=== PATIENT | male | born 1955 | race Caucasian/White ===

== ENCOUNTER 2018-10-02 21:53 | Emergency (ER) | payer MEDICAID, MEDICARE ==
[~2018-10-02] VITALS: Ht 182.9 cm; Wt 84.0 kg
[~2018-10-02 21:53] MED LIST: NORCO10T PO
[2018-10-02 23:34] LABS: BASOPHILS % (AUTO) 0.9 % (0-1); EOSINOPHILS # (AUTO) 0.3 X10'3 (0-0.9); EOSINOPHILS % (AUTO) 5.7 % (0-6); HEMATOCRIT 41.5 % (42.0-52.0); HEMOGLOBIN 14.3 g/dl (14.0-17.9); LYMPHOCYTES # (AUTO) 1.5 X10'3 (1.1-4.8); LYMPHOCYTES % (AUTO) 33.6 % (21-51); MEAN CORPUSCULAR HEMOGLOBIN 36.2 PG (27.0-31.0); MEAN CORPUSCULAR HGB CONC 34.4 g/dL (33.0-36.5); MEAN CORPUSCULAR VOLUME 105.1 FL (78-98); MEAN PLATELET VOLUME 7.6 FL (7.4-10.4); MONOCYTES # (AUTO) 0.6 X10'3 (0-0.9); MONOCYTES % (AUTO) 13.5 % (2-12); NEUTROPHILS # (AUTO) 2.1 X10'3 (1.8-7.7); NEUTROPHILS % (AUTO) 46.3 % (42-75); PLATELET COUNT 125 X10'3 (140-440); RED BLOOD COUNT 3.95 X10'6 (4.70-6.10); RED CELL DISTRIBUTION WIDTH 13.3 % (11.5-14.5); WHITE BLOOD COUNT 4.6 X10'3 (4.5-11.0)
[2018-10-02 23:50] LABS: ALANINE AMINOTRANSFERASE 128 U/L (12-78); ALBUMIN 3.9 G/DL (3.4-5.0); ALKALINE PHOSPHATASE 147 IU/L (46-116); ANION GAP 14 (8-16); ASPARTATE AMINO TRANSFERASE 189 U/L (10-37); BILIRUBIN,TOTAL 0.4 MG/DL (0.1-1.0); BLOOD UREA NITROGEN 12 MG/DL (7-18); BUN/CREATININE RATIO 13.8 (5.4-32.0); CALCIUM 9.4 MG/DL (8.5-10.1); CHLORIDE 105 MMOL/L (99-107); CREATININE 0.87 MG/DL (0.60-1.10); GLUCOSE 105 MG/DL (70-104); POTASSIUM 4.1 MMOL/L (3.5-5.1); SODIUM 144 MMOL/L (135-145); TOTAL CARBON DIOXIDE 25.2 MMOL/L (24-32); TOTAL PROTEIN 7.7 G/DL (6.4-8.2); eGFR 89 ML/MIN
[2018-10-02 23:52] LABS: TROPONIN I < 0.04 NG/ML (0.0-0.05)
[2018-10-03 01:13] VITALS: BP 158/85
== END 2018-10-03 02:22 | disposition home or self-care (01) ==
LOC: ER 21:53
DX: F10.929 Alcohol use, unspecified with intoxication, unspecified (principal); Z79.899 Other long term (current) drug therapy
CPT/HCPCS: 36415; 80053; 80320; 84443; 84484; 85025; 99284

== ENCOUNTER 2019-12-04 12:02 | Emergency (ER) | payer MEDICARE ==
[~2019-12-04] VITALS: Ht 180.3 cm; Wt 80.0 kg
[~2019-12-04 12:02] MED LIST changes: -NORCO10T PO; +PANT-47 PO
[2019-12-04] MEDS ORDERED: thiamine 100mg/ml 2ml inj. IV ONE (12:10)
[2019-12-04] MEDS ORDERED: normal saline 1000ML IV soln IVB ONE (12:10)
[2019-12-04] MEDS ORDERED: folic acid 1mg/0.2ml inj IV ONE (12:10)
[2019-12-04 12:47] LABS: BASOPHILS % (AUTO) 0.6 % (0-1); EOSINOPHILS % (AUTO) 0.2 % (0-6); HEMATOCRIT 42.7 % (42.0-52.0); HEMOGLOBIN 14.9 g/dl (14.0-17.9); LYMPHOCYTES % (AUTO) 14.9 % (21-51); MEAN CORPUSCULAR HGB CONC 34.9 g/dL (33.0-36.5); MEAN CORPUSCULAR VOLUME 103.1 FL (78-98); MEAN PLATELET VOLUME 7.7 FL (7.4-10.4); MONOCYTES # (AUTO) 0.7 X10'3 (0-0.9); MONOCYTES % (AUTO) 10.1 % (2-12); NEUTROPHILS # (AUTO) 4.8 X10'3 (1.8-7.7); NEUTROPHILS % (AUTO) 74.2 % (42-75); PLATELET COUNT 129 X10'3 (140-440); RED BLOOD COUNT 4.14 X10'6 (4.70-6.10); RED CELL DISTRIBUTION WIDTH 12.8 % (11.5-14.5); WHITE BLOOD COUNT 6.5 X10'3 (4.5-11.0)
[2019-12-04 13:00] LABS: ALANINE AMINOTRANSFERASE 171 U/L (12-78); ALBUMIN 4.1 G/DL (3.4-5.0); ALBUMIN/GLOBULIN RATIO 1.1 (1.1-1.5); ALKALINE PHOSPHATASE 108 IU/L (46-116); ANION GAP 15 (8-16); ASPARTATE AMINO TRANSFERASE 200 U/L (10-37); BILIRUBIN,TOTAL 0.7 MG/DL (0.1-1.0); BLOOD UREA NITROGEN 6 MG/DL (7-18); CALCIUM 9.6 MG/DL (8.5-10.1); CHLORIDE 97 MMOL/L (99-107); CREATININE 1.21 MG/DL (0.60-1.10); ETHANOL 0.049 GM/DL (0.0-0.010); GLUCOSE 127 MG/DL (70-104); POTASSIUM 3.6 MMOL/L (3.5-5.1); SODIUM 139 MMOL/L (135-145); TOTAL CARBON DIOXIDE 27.2 MMOL/L (24-32); eGFR 60 ML/MIN
[2019-12-04] MEDS ORDERED: LORazepam 2 mg/ml vial IV ONE (13:00)
[2019-12-04] MEDS ORDERED: ondansetron/PF 4mg/2ml inj IV ONE (13:35)
[2019-12-04] MEDS ORDERED: cloNIDine 0.1 mg tablet PO ONE (14:35)
[2019-12-04] MEDS ORDERED: ONDA4TAB6 PO (15:30)
[2019-12-04] MEDS ORDERED: GABA300C PO (15:30)
[2019-12-04] MEDS ORDERED: LORA-269 PO (15:30)
[2019-12-04 15:33] VITALS: BP 131/79
== END 2019-12-04 17:00 | disposition home or self-care (01) ==
LOC: ER 12:03
DX: F10.239 Alcohol dependence with withdrawal, unspecified (principal); R10.9 Unspecified abdominal pain; R11.2 Nausea with vomiting, unspecified; R06.02 Shortness of breath; Z79.899 Other long term (current) drug therapy; Y90.0 Blood alcohol level of less than 20 mg/100 ml
CPT/HCPCS: 36415; 71045; 74018; 80053; 80320; 83880; 84484; 85025; 93005; 96361; 96374; 96375; 99285; J2060; J2405; J3411; J3490; J7030

== ENCOUNTER 2020-05-30 23:08 | Emergency (ER) | payer MEDICARE, OTHER ==
[~2020-05-30] VITALS: Ht 180.3 cm; Wt 84.1 kg
[~2020-05-30 23:08] MED LIST changes: +GABA300C PO; +LORA-269 PO; +ONDA4TAB6 PO
[2020-05-30] MEDS ORDERED: diltiazem 5mg/ml 5ml inj. IV ONE (23:25)
[2020-05-30] MEDS ORDERED: normal saline 1000ml 1,000 ML IV ONE (23:25)
[2020-05-30] MEDS ORDERED: ondansetron/PF 4mg/2ml inj IV ONE (23:25)
[2020-05-30] MEDS ORDERED: magnesium 2GM in 50ml NS 50 ML IV ONE (23:25)
[2020-05-30] MEDS ORDERED: LORazepam 2 mg/ml vial IV ONE (23:30)
[2020-05-30 23:42] LABS: BASOPHILS % (AUTO) 0.5 % (0-1); EOSINOPHILS % (AUTO) 0.1 % (0-6); HEMATOCRIT 44.8 % (42.0-52.0); HEMOGLOBIN 15.8 g/dl (14.0-17.9); LYMPHOCYTES # (AUTO) 1.4 X10'3 (1.1-4.8); LYMPHOCYTES % (AUTO) 15.1 % (21-51); MEAN CORPUSCULAR HEMOGLOBIN 34.6 PG (27.0-31.0); MEAN CORPUSCULAR HGB CONC 35.2 g/dL (33.0-36.5); MEAN CORPUSCULAR VOLUME 98.4 FL (78-98); MEAN PLATELET VOLUME 7.6 FL (7.4-10.4); MONOCYTES # (AUTO) 0.6 X10'3 (0-0.9); NEUTROPHILS # (AUTO) 7.1 X10'3 (1.8-7.7); NEUTROPHILS % (AUTO) 77.3 % (42-75); PLATELET COUNT 172 X10'3 (140-440); RED BLOOD COUNT 4.55 X10'6 (4.70-6.10); RED CELL DISTRIBUTION WIDTH 16.4 % (11.5-14.5); WHITE BLOOD COUNT 9.2 X10'3 (4.5-11.0)
[2020-05-30 23:55] LABS: ALANINE AMINOTRANSFERASE 32 U/L (12-78); ALBUMIN 4.7 G/DL (3.4-5.0); ALBUMIN/GLOBULIN RATIO 1.1 (1.1-1.5); ALKALINE PHOSPHATASE 96 IU/L (46-116); ANION GAP 26 (8-16); ASPARTATE AMINO TRANSFERASE 41 U/L (10-37); BILIRUBIN,TOTAL 1.1 MG/DL (0.1-1.0); BLOOD UREA NITROGEN 23 MG/DL (7-18); CALCIUM 9.5 MG/DL (8.5-10.1); CHLORIDE 97 MMOL/L (99-107); CREATININE 1.35 MG/DL (0.60-1.10); GLUCOSE 165 MG/DL (70-104); POTASSIUM 4.8 MMOL/L (3.5-5.1); SODIUM 141 MMOL/L (135-145); TOTAL CARBON DIOXIDE 18.5 MMOL/L (24-32); eGFR 53 ML/MIN
[2020-05-31 00:03] LABS: ETHANOL 0.034 GM/DL (0.0-0.010); LIPASE 223 U/L (73-393); MAGNESIUM 1.6 MG/DL (1.5-2.4)
[2020-05-31] MEDS ORDERED: normal saline 1000ML IV soln IVB ONE ×2 (00:25)
[2020-05-31] MEDS ORDERED: CHLO25CA10 PO (02:33)
[2020-05-31] MEDS ORDERED: chlordiazePOXIDE 25mg capsule PO ONE (02:35)
[2020-05-31 02:47] VITALS: BP 159/82
== END 2020-05-31 02:48 | disposition home or self-care (01) ==
LOC: ER 23:09
DX: I48.20 Chronic atrial fibrillation, unspecified (principal); R10.84 Generalized abdominal pain; R00.2 Palpitations; Z72.89 Other problems related to lifestyle; Z79.899 Other long term (current) drug therapy
CPT/HCPCS: 36415; 71045; 80053; 80320; 83690; 83735; 83880; 84484; 85025; 85610; 96365; 96366; 96375; 99285; J2060; J2405; J3475; J7030; 93005; J3490

== ENCOUNTER 2020-11-17 11:13 | Emergency (ER) | payer MEDICARE, OTHER ==
[~2020-11-17] VITALS: Ht 180.3 cm; Wt 86.4 kg
[~2020-11-17 11:13] MED LIST changes: +CHLO25CA10 PO
[2020-11-17 12:05] LABS: ALANINE AMINOTRANSFERASE 43 U/L (12-78); ALBUMIN 4.6 G/DL (3.4-5.0); ALBUMIN/GLOBULIN RATIO 1.2 (1.1-1.5); ALKALINE PHOSPHATASE 89 IU/L (46-116); ANION GAP 19 (8-16); ASPARTATE AMINO TRANSFERASE 53 U/L (10-37); BILIRUBIN,TOTAL 0.8 MG/DL (0.1-1.0); BLOOD UREA NITROGEN 18 MG/DL (7-18); BUN/CREATININE RATIO 16.1 (5.4-32.0); CALCIUM 9.7 MG/DL (8.5-10.1); CHLORIDE 96 MMOL/L (99-107); CREATININE 1.12 MG/DL (0.60-1.10); GLUCOSE 105 MG/DL (70-104); POTASSIUM 3.9 MMOL/L (3.5-5.1); SODIUM 140 MMOL/L (135-145); TOTAL CARBON DIOXIDE 25.5 MMOL/L (24-32); TOTAL PROTEIN 8.5 G/DL (6.4-8.2); eGFR 66 ML/MIN
[2020-11-17 12:08] LABS: BASOPHILS # (AUTO) 0.1 X10'3 (0-0.2); BASOPHILS % (AUTO) 1.2 % (0-1); EOSINOPHILS # (AUTO) 0.1 X10'3 (0-0.9); EOSINOPHILS % (AUTO) 1.2 % (0-6); HEMATOCRIT 46.5 % (42.0-52.0); HEMOGLOBIN 16.3 g/dl (14.0-17.9); LYMPHOCYTES % (AUTO) 28.3 % (21-51); MEAN CORPUSCULAR HEMOGLOBIN 34.9 PG (27.0-31.0); MEAN CORPUSCULAR VOLUME 99.6 FL (78-98); MEAN PLATELET VOLUME 8.2 FL (7.4-10.4); MONOCYTES # (AUTO) 0.7 X10'3 (0-0.9); MONOCYTES % (AUTO) 9.7 % (2-12); NEUTROPHILS # (AUTO) 4.2 X10'3 (1.8-7.7); NEUTROPHILS % (AUTO) 59.6 % (42-75); PLATELET COUNT 215 X10'3 (140-440); RED BLOOD COUNT 4.67 X10'6 (4.70-6.10); RED CELL DISTRIBUTION WIDTH 13.4 % (11.5-14.5); WHITE BLOOD COUNT 7.1 X10'3 (4.5-11.0)
[2020-11-17] MEDS ORDERED: normal saline 1000ml 1,000 ML IV ONE (13:00)
[2020-11-17] MEDS ORDERED: thiamine 100mg/ml 2ml inj. IV ONE (13:00)
[2020-11-17] MEDS ORDERED: LORazepam 2 mg/ml vial IV ONE (13:00)
[2020-11-17] MEDS ORDERED: folic acid 1mg/0.2ml inj IV ONE (13:00)
[2020-11-17 13:34] LABS: ETHANOL 0.306 GM/DL (0.0-0.010)
[2020-11-17] MEDS ORDERED: CHLO25CA10 PO (14:01)
[2020-11-17 14:20] VITALS: BP 159/96
== END 2020-11-17 14:22 | disposition home or self-care (01) ==
LOC: ER 11:14
DX: F10.230 Alcohol dependence with withdrawal, uncomplicated (principal); R00.2 Palpitations; F12.90 Cannabis use, unspecified, uncomplicated; Z79.899 Other long term (current) drug therapy
CPT/HCPCS: 36415; 71045; 80053; 80320; 83880; 84484; 85025; 93005; 96361; 96374; 96375; 99285; J2060; J3411; J3490; J7030

== ENCOUNTER 2021-02-01 03:03 | Emergency (ER) | payer MEDICARE ==
[~2021-02-01] VITALS: Ht 175.3 cm; Wt 81.8 kg
[2021-02-01] MEDS ORDERED: normal saline 1000ML IV soln IVB ONE (03:25)
[2021-02-01] MEDS ORDERED: LORazepam 2 mg/ml vial IV ONE (03:40)
[2021-02-01] MEDS ORDERED: chlordiazePOXIDE 25mg capsule PO ONE (03:40)
[2021-02-01] MEDS ORDERED: haloperidol lactate 5mg/ml inj IM ONE (03:40)
[2021-02-01] MEDS ORDERED: magnesium 2GM in 50ml NS 50 ML IV ONE (03:40)
[2021-02-01] MEDS ORDERED: folic acid 1mg tablet PO ONE (03:40)
[2021-02-01] MEDS ORDERED: thiamine 100mg tablet PO ONE (03:40)
[2021-02-01 03:51] LABS: BASOPHILS # (AUTO) 0.1 X10'3 (0-0.2); BASOPHILS % (AUTO) 0.9 % (0-1); EOSINOPHILS % (AUTO) 0.4 % (0-6); HEMATOCRIT 45.5 % (42.0-52.0); HEMOGLOBIN 15.6 g/dl (14.0-17.9); MEAN CORPUSCULAR HEMOGLOBIN 34.1 PG (27.0-31.0); MEAN CORPUSCULAR HGB CONC 34.4 g/dL (33.0-36.5); MEAN CORPUSCULAR VOLUME 99.1 FL (78-98); MEAN PLATELET VOLUME 7.7 FL (7.4-10.4); MONOCYTES # (AUTO) 0.8 X10'3 (0-0.9); MONOCYTES % (AUTO) 10.9 % (2-12); NEUTROPHILS # (AUTO) 4.6 X10'3 (1.8-7.7); NEUTROPHILS % (AUTO) 61.8 % (42-75); PLATELET COUNT 253 X10'3 (140-440); RED BLOOD COUNT 4.59 X10'6 (4.70-6.10); RED CELL DISTRIBUTION WIDTH 12.8 % (11.5-14.5); WHITE BLOOD COUNT 7.5 X10'3 (4.5-11.0)
[2021-02-01 04:01] LABS: ALANINE AMINOTRANSFERASE 26 U/L (12-78); ALBUMIN 4.6 G/DL (3.4-5.0); ALBUMIN/GLOBULIN RATIO 1.2 (1.1-1.5); ALKALINE PHOSPHATASE 89 IU/L (46-116); ANION GAP 23 (8-16); ASPARTATE AMINO TRANSFERASE 26 U/L (10-37); BILIRUBIN,TOTAL 0.4 MG/DL (0.1-1.0); BLOOD UREA NITROGEN 21 MG/DL (7-18); BUN/CREATININE RATIO 17.2 (5.4-32.0); CALCIUM 9.3 MG/DL (8.5-10.1); CHLORIDE 99 MMOL/L (99-107); CREATININE 1.22 MG/DL (0.60-1.10); ETHANOL 0.149 GM/DL (0.0-0.010); GLUCOSE 110 MG/DL (70-104); MAGNESIUM 1.6 MG/DL (1.5-2.4); POTASSIUM 4.3 MMOL/L (3.5-5.1); SODIUM 143 MMOL/L (135-145); TOTAL CARBON DIOXIDE 20.6 MMOL/L (24-32); TOTAL PROTEIN 8.4 G/DL (6.4-8.2); eGFR 60 ML/MIN
[2021-02-01 04:51] LABS: URINE AMPHETAMINE SCREEN NEGATIVE (Neg); URINE BARBITUATE SCREEN NEGATIVE (Neg); URINE BENZODIAZEPINES SCREEN NEGATIVE (Neg); URINE CANNABINOID SCREEN POSITIVE (Neg); URINE COCAINE SCREEN NEGATIVE (Neg); URINE METHADONE SCREEN NEGATIVE (Neg); URINE OPIATE SCREEN NEGATIVE (Neg); URINE PHENCYCLIDINE SCREEN NEGATIVE (Neg)
[2021-02-01 05:02] LABS: CLARITY,URINE CLEAR (Clear); COLOR,URINE YELLOW (Yellow); GLUCOSE, URINE NEGATIVE (Neg); KETONES,URINE 15 mg/dl (Neg); LEUKOCYTE ESTERASE ,URINE NEGATIVE (Neg); NITRITES, URINE NEGATIVE (Neg); OCCULT BLOOD,URINE NEGATIVE (Neg); PH,URINE 6.5 (4.8-8.0); PROTEIN,URINE 100 mg/dl (Neg); UROBILINOGEN,URINE 0.2 E.U/dL (0.2-1.0)
[2021-02-01] MEDS ORDERED: diazepam 5mg tablet PO ONE (05:05)
[2021-02-01] MEDS ORDERED: CHLO25CA10 PO (05:06)
[2021-02-01 05:08] LABS: UA COLLECTION TYPE URINAL
[2021-02-01 05:21] LABS: MUCUS STRANDS MANY /LPF (Neg)
[2021-02-01 05:22] LABS: BACTERIA,URINE NONE SEEN /HPF (Neg); RBC,URINE NONE SEEN /HPF (0-2); WBC,URINE 0-4 /HPF (0-4)
[2021-02-01 05:23] LABS: SQUAMOUS EPITHELIAL CELL,UR NONE SEEN /LPF (FEW)
--- NOTE | 2021-02-01 05:49 | NUR ---
[facility] OUT OF STOCK IN HOSP[facility]. PT GIVEN VALIUM PER MD ORDER INSTEAD.
[2021-02-01 06:49] VITALS: BP 137/82
== END 2021-02-01 07:41 | disposition home or self-care (01) ==
LOC: ER 03:03
DX: F10.129 Alcohol abuse with intoxication, unspecified (principal); F10.139 Alcohol abuse with withdrawal, unspecified; F12.90 Cannabis use, unspecified, uncomplicated; Z60.2 Problems related to living alone; Z79.899 Other long term (current) drug therapy; Y90.0 Blood alcohol level of less than 20 mg/100 ml
CPT/HCPCS: 36415; 80053; 80305; 80320; 81001; 83735; 84484; 85025; 93005; 96361; 96365; 96372; 96375; 99285; J1630; J2060; J3475; J7030